=== PATIENT | female | born 1995 | race Caucasian/White ===

== ENCOUNTER 2025-05-27 15:02 | Emergency (ER) | payer OTHER, SELFPAY ==
[2025-05-27 15:10] VITALS: BP 125/88
[2025-05-27 15:33] LABS: Hematocrit 44.2 % (37.0-47.0); Hemoglobin 15.1 g/dL (12.0-16.0); Mean Corp Hgb Conc. 34.2 g/dL (33.0-37.0); Mean Corpuscular Volume 81.3 fL (81.0-99.0); Nucleated Red Blood Cells % 0 %; Platelet Count 267 10^3/uL (130-400); Red Cell Dist. Width 12.1 % (11.5-14.5)
[2025-05-27 15:36] LABS: INR 0.96; PT 13.1 Sec (11.4-14.6)
[2025-05-27 15:39] LABS: HCG, Serum Qualitative Screen Negative
[2025-05-27 15:47] LABS: ALT (SGPT) 13 U/L (0-35); AST (SGOT) 18 U/L (14-36); Albumin 4.5 g/dl (3.5-5.0); Alkaline Phosphatase 58 U/L (38-126); Blood Urea Nitrogen 13 mg/dl (7-17); Calcium 9.2 mg/dl (8.4-10.2); Carbon Dioxide 25 mmol/L (22-30); Chloride 107 mmol/L (98-107); Glucose 93 mg/dl (70-99); Potassium 4.1 mmol/L (3.5-5.1); Sodium 138 mmol/L (135-145); Total Protein 7.3 g/dl (6.3-8.2); eGFR > 60.00
[2025-05-27 15:54] LABS: Troponin I < 0.012 ng/ml
--- NOTE | 2025-05-27 16:50 | ED.GENMED ---
History of Present Illness
General
Chief Complaint: Abnormal Lab Value
Source: patient and spouse
Exam Limitations: none
Time Seen by Provider: 05/27/25 16:33
Nursing documentation reviewed up to this point in time: agreed with
History of Present Illness
History of Present Illness:
30-year-old female with past medical history of chronic headache/migraine who presents to the emergency department for evaluation of positive D-dimer. Patient has chronic headaches for 9 years and sees a neurologist (Dr. Ho through [facility]).
She most recently had MRI in February of this year that was reportedly unchanged. She says that she has not had any change in the quality, intensity, or pattern of her headache. She currently gets regular Botox injections and takes Nurtec as needed for
severe headaches. She says that her neurologist sent a series of blood tests on her about 2 weeks ago as part of continued evaluation of her chronic headaches. One of those lab test was a D-dimer which came back slightly elevated (1.2 on review of
outpatient labs which patient has at bedside, cutoff 0.5). She says that her neurologist called her and recommended that she get an MRV which she has not received yet.
Meanwhile over the past few days patient says that she has noticed that she has some soreness in her left calf in the absence of any injury. Over the past day or 2 she said she may have noticed some very mild shortness of breath as well. She was
very concerned about the symptoms in the context of the recently positive D-dimer which prompted her to schedule an appointment with her primary doctor who referred her to the ER to be assessed. She denies any chest pain. She denies any other
acute complaints.
Review of Systems
Review of Systems
All Other Systems: ROS reviewed and negative except as documented in HPI and ROS
Constitutional: Denies fever
Respiratory: Reports trouble breathing; Denies cough
Cardiac: Denies chest pain
ABD/GI: Denies abdominal pain
: Denies flank pain
Musculoskeletal: Reports muscle pain (Calf pain); Denies edema, neck pain or back pain
Neurological: Reports headache (Chronic); Denies dizzy, weakness or numbness
Phy Exam
Physical Exam
Physical Exam:
General: Awake, alert, oriented x3; no acute distress
Head: Normocephalic, atraumatic
Eyes: Conjunctiva normal, EOMI, pupils equal round reactive to light bilaterally
Throat: Airway intact, handling secretions
Neck: Trachea midline, supple without meningismus
Lungs: Clear to auscultation bilaterally, no wheezing, rales, rhonchi
Heart: Regular rate and rhythm, no murmurs, gallops, or rubs
Abd: Soft, non distended, nontender
Neuro: Cranial nerves intact, speech fluid, motor and sensory intact in all extremities
Skin: No skin changes in the calf
Extremities: No edema in extremities, mild left calf tenderness, equal pulses in all extremities�specifically strong DP and PT pulses in the lower extremities bilaterally
Scores
Heart Failure Risk
Heart Failure Risk Score: Not Applicable
Heart Score for Chest Pain Patients
STEMI patient?: Not applicable
Withdrawal Assessment of Alcohol
Withdrawal Assessment Completed?: Not applicable
Course
Orders/Labs/Results
Orders:
Orders
05/27/25 15:17
EKG [Electrocardiogram (*1)] Urgent
Reason for Study: Shortness of Breath
EKG- Treatment ONCE
Test Result ONCE
US Periph Venous LOWER Ext LT Urgent
Comment:
Reason For Exam: calf pain, +Dimer
05/27/25 15:21
Complete Blood Count/With Diff Urgent
Comprehensive Metabolic Panel Urgent
HCG, Serum Qualitative Screen Urgent
Prothrombin Time Urgent
Troponin I Urgent
05/27/25 16:55
CT Head With Iv Contrast Urgent
Comment: CT venogram
Reason For Exam: headache, +dimer
Abnormal Lab Results
05/27/25
15:21
RBC 5.44 H 10^6/uL
(4.20-5.40)
05/27/25 15:21
05/27/25 15:21
Vital Signs
Initial and Last Documented VS:
Initial Vital Signs
Temp Pulse Resp BP Pulse Ox
36.9 C 92 15 125/88 97
05/27/25 15:10 05/27/25 15:10 05/27/25 15:10 05/27/25 15:10 05/27/25 15:10
Last Documented Vital Signs
Temp Pulse Resp BP Pulse Ox
36.9 C 92 15 125/88 97
05/27/25 15:10 05/27/25 15:10 05/27/25 15:10 05/27/25 15:10 05/27/25 16:55
MDM/Problems Addressed
Differential Diagnosis Includes:
Headache: Tension headaches, migraine headaches, dural venous thrombus
Chest pain/shortness of breath, anxiety, arrhythmia, anemia, PE
MDM/Problems Addressed:
30-year-old female presents to the ER for evaluation of a positive D-dimer. Patient had a D-dimer sent by her neurologist as part of her evaluation of chronic headaches which have not changed recently. She had an MRI of the brain in February which was
reportedly reassuring. She was told she should have an MRV because of this result. Meanwhile patient says that she did note some mild calf pain and occasional shortness of breath over the past few days and was concerned about the symptoms in the
context of recently positive D-dimer which was sent for headache workup�for this reason she saw her primary who referred her to the ER to be assessed. In my judgment clinical suspicion for thromboembolic disease is extremely low�I have low clinical
suspicion that she has dural venous thrombus and extremely low clinical suspicion that she has DVT or pulmonary embolism and I would not acutely send a D-dimer to evaluate the symptoms based on history and exam provided today. Unfortunately test
was sent outpatient and marginally positive.
MRV not available on an emergent basis here but we could do a CT venogram to workup her headache with positive D-dimer. Of course CTA of the chest would be gold standard to rule out pulmonary embolism--unfortunately would need to time contrast for
one study or the other�to perform both studies would affect the diagnostic accuracy of both. She had blood work sent in triage: CBC and CMP unremarkable. Her hCG is negative and her troponin is undetectable. She had an ultrasound of her left calf
which was negative for DVT which rules that diagnosis out. I think in my judgment with the patient having minimal occasional shortness of breath over the past few days with negative DVT study today my clinical suspicion for PE is very low in my
judgment patient does not require an emergent CT of the chest at this point in time. I think the most appropriate study at this point is to perform CT venogram to rule out dural venous thrombus, hold off on CT angio of the chest at this point and
if the study is negative patient can be discharged to continue her outpatient workup with her primary and neurologist.
CT venogram shows no signs of thrombus. Patient stable on ED observation, normal blood pressure, normal heart rate, normal respiratory rate, normal pulse ox. She feels well on clinical reassessment. At this point her vital signs have been stable
her exam is very reassuring I think she can be discharged to follow-up as an outpatient regarding her chronic headaches. Low suspicion for emergent pathology as cause for her mild occasional dyspnea over the past few days. Can follow-up with her
primary care physician. Patient comfortable with this plan. Spoke about return precautions and all questions answered.
*Radiology
Radiology exam reviewed: radiology read reviewed
*Pulse Oximetry
SaO2: 97
Oxygen Mode of Delivery: Room air
Patient hypoxic: no (97%)
*EKG
Interpreted by ED Provider?: Yes
Heart Rate: 72
Rate: normal
Rhythm: sinus
[place]: normal axis
Interval: normal interval
QRS Pattern: normal QRS
Ischemia: no ischemia
*Critical Care Note
Total Time (30-74mins, 75-104mins- exclusive of procedures): Not Applicable
Data Reviewed
Source: patient and records
Further Testing Considered But Not Given:
Considered CT chest
ED Attending Note
-
Portions of this chart may have been created with voice recognition software.� Occasional wrong word or��sound alike� substitutions may have occurred due to the inherent limitations of voice recognition software.
Discharge Plan
Departure
Patient Disposition: Home (Routine Discharge)
Date of Disposition: 05/27/25
Time of Disposition: 18:37
Patient with high blood pressure during this ER visit?: No
Discharge Problem:
Headache, Calf pain, Positive D dimer
Instructions: Headache in adults - ED discharge instructions
Referrals:
Bambi Renner NP [Family Provider, Internal Medicine] - Call in 1-3 days for appt
Mitchell Ho MD [Non-Admitting Privileges, Neurology] - Call in 1-3 days for appt
Activity Restrictions/Additional Instructions:
You should follow-up with your primary care physician after your trip to the emergency room as well as with your usual neurologist. If you feel your symptoms are worsening you should return to the emergency room.
Thank you for visiting the Emergency Department at [facility].
1. Please schedule a follow up appointment as directed. Call first thing tomorrow morning to make an appointment.
2. If indicated, please take your medications as instructed and indicated on discharge paperwork.
3. If any of your symptoms do not improve, or persist, or become more severe within 6-12 hours, please return to the emergency department for further care.
4. Please return to the emergency department if you develop a headache, neck pain/stiffness, fever greater than 100.4F, chest pain, shortness of breath, persistent nausea, vomiting, slurred speech, difficulty walking, numbness/tingling, weakness,
signs of infection or any other symptoms that are worrisome to you.
Please call [phone] if you have any questions.
Interventions
Interventions:
*Risk Screen - Suicide Last Done: 05/27/25 15:15
*General Assessment Last Done: 05/27/25 15:15
*Neglect/Abuse Screening Last Done: 05/27/25 15:15
*ED COVID-19 Vaccine History Last Done: 05/27/25 15:15
Discharge Date and Time
Print Language: VIET[place]
== END 2025-05-27 18:44 | disposition home or self-care (01) ==
LOC: EMR 15:02
PROVIDERS: Emergency Medicine; EMERGENCY PHYSICIAN Emergency Medicine; FAMILY PHYSICIAN Nurse Practitioner Family
DX: R51.9 Headache, unspecified (principal); M79.662 Pain in left lower leg; G89.29 Other chronic pain; R79.1 Abnormal coagulation profile
CPT/HCPCS: 99284; 70460; 80053; 84484; 84703; 85025; 85610; 93005; 93971; Q9967